=== PATIENT | male | born 1985 | race Hispanic/Latino ===

== ENCOUNTER 2016-11-28 07:11 | Emergency (ER) | payer SELFPAY ==
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
[2016-11-28 07:47] VITALS: RESP 19; TEMP 98.5
--- NOTE | 2016-11-28 11:30 | DI ---
LEFT ANKLE, 11/28/2016 6:43 AM: Clinical History: Pain and swelling of the left ankle after a fall while running. Previous Exam: None at this facility. 3 views are submitted. There is soft tissue swelling lateral malleolus extending toward the distal th ird of the fibula. No ankle effusion is present. There is no fracture. However, there is very mild wi dening of the lateral aspect of the ankle mortise suggesting significant injury to the talofibular li gaments as well as possibly the calcaneofibular ligament. Reading: No fracture noted. Slight widening of the lateral aspect of the ankle mortise is noted and this sugge sts there may have been significant injury to the anterior and posterior talofibular ligaments and po ssibly even calcaneofibular.
--- NOTE | 2016-11-28 11:34 | DI ---
RIGHT ANKLE, 11/28/2016 7:04 AM: Clinical History: Right ankle pain and swelling secondary to a fall while running. Previous Exam: None at this facility. 3 views are submitted. No fractures are identified. No soft tissue swelling or ankle effusion is note d. The lateral aspect of the ankle mortise is slightly more prominent than the left side. This may re present lateral ligamentous laxity secondary to previous injury to the lateral aspect of the ankle. Reading: No fractures noted. Slight prominence of the lateral aspect of the tibiotalar joint is noted in this may represent changes related to chronic lateral ligamentous laxity of the anterior and posterior gerardo ofibular ligaments and the calcaneofibular ligament.
== END 2016-11-28 08:25 | disposition home or self-care (01) ==
LOC: ER 07:11
DX: S93.492A Sprain of other ligament of left ankle, initial encounter (principal); S93.491A Sprain of other ligament of right ankle, initial encounter; F10.129 Alcohol abuse with intoxication, unspecified; X50.1XXA Overexertion from prolonged static or awkward postures, initial encounter; Y93.02 Activity, running
CPT/HCPCS: 73610; 99282; 99283